=== PATIENT | male | born 2000 | race Caucasian/White ===

== ENCOUNTER 2025-02-06 03:12 | Emergency (ER) | payer BC, OTHER ==
[~2025-02-06] VITALS: Ht 198.1 cm; Wt 111.6 kg
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
--- NOTE | 2025-02-06 03:57 | DVH ---
CLINICAL INDICATION: INJURY TECHNIQUE: XY L HAND 3V XRAY Comparison: None FINDINGS/IMPRESSION: : Moderately displaced partially comminuted fracture of the base of the 5th metacarpal resulting in 46 degrees volar angulation. Soft tissues are unremarkable.
[2025-02-06 04:09] VITALS: BP 135/84; PULSE 95; RESP 20; TEMP 98.9; O2SAT 99
[2025-02-06] MEDS: KETOROLAC TROMETH 60MG/2ML VIAL IM ONE (04:09)
[2025-02-06] MEDS: HYDROcodone-ACET 5/325MG TAB PO ONE (04:10)
[2025-02-06] MEDS: LIDOCAINE 1% HCL (LOCAL ANESTH.) INJ 20ML MDV ID ONE (04:12)
--- NOTE | 2025-02-06 05:14 | DVH ---
EXAM: XY L HAND 3V XRAY HISTORY: Postreduction moderately displaced 5th metacarpal base COMPARISON: XY L HAND 3V XRAY on DOS: 02/06/25 TECHNIQUE: Three views of the left hand were performed. FINDINGS: Proximal 5th metacarpal fracture. No dislocation. IMPRESSION: 1. Proximal 5th metacarpal fracture.
== END 2025-02-06 05:08 | disposition home or self-care (01) ==
LOC: ER 03:12
DX: S62.307A Unspecified fracture of fifth metacarpal bone, left hand, initial encounter for closed fracture (principal); Z88.1 Allergy status to other antibiotic agents; X58.XXXA Exposure to other specified factors, initial encounter; Y93.89 Activity, other specified; Y92.89 Other specified places as the place of occurrence of the external cause; Y99.8 Other external cause status
CPT/HCPCS: 26605; 73130; 96372; 99284; J1885; J2003